=== PATIENT | male | born 1975 ===

== ENCOUNTER 2017-08-23 19:19 | Emergency (ER) | payer SELFPAY ==
[2017-08-23 20:02] VITALS: BP 146/86; PULSE 91; RESP 18; TEMP 98.4; O2SAT 98
--- NOTE | 2017-08-23 21:39 | ED PDOC ---
HPI: CCC, URI, Sore Throat Time Seen by Provider: 08/23/17 21:21 Chief Complaint (Nursing): Cough, Cold, Congestion Chief Complaint (Provider): Cough, Cold, Congestion History Per: Patient History/Exam Limitations: no limitations Onset/Duration Of Symptoms: Days (x 1 month) Current Symptoms Are (Timing): Still Present Additional Complaint(s): 42 year old male presents to the emergency department complaining of cough and congestion, ongoing for 1 month but worsen over the last 3-4 days. Patient previously had a fever, which is now resolved. He reports taking cough syrup with no improvement. Denies any recent travel. Denies chest pain. PMD: None Past Medical History Reviewed: Historical Data, Nursing Documentation, Vital Signs Vital Signs: Last Vital Signs Temp 98.4 F 08/23/17 19:58 Pulse 91 H 08/23/17 19:58 Resp 18 08/23/17 19:58 BP 146/86 08/23/17 19:58 Pulse Ox 98 08/23/17 21:40 - Medical History PMH: No Chronic Diseases - Family History Family History: States: No Known Family Hx - Living Arrangements Living Arrangements: With Family - Social History Current smoker - smoking cessation education provided: No Alcohol: None Drugs: Denies - Home Medications Home Medications: Ambulatory Orders Medication Instructions Recorded Albuterol HFA [Ventolin HFA 90 1 puff IH ASDIR #1 unit 08/23/17 mcg/actuation (8 g)] Azithromycin [Zithromax] 250 mg PO DAILY #6 tab 08/23/17 Benzonatate 200 mg PO TID PRN #20 capsule 08/23/17 - Allergies Allergies/Adverse Reactions: Allergies Allergy/AdvReac Type Severity Reaction Status Date / Time No Known Allergies Allergy Verified 08/23/17 19:58 Review of Systems ROS Statement: Except As Marked, All Systems Reviewed And Found Negative Constitutional: Negative for: Fever ENT: Positive for: Nose Congestion. Negative for: Throat Pain Respiratory: Positive for: Cough. Negative for: Shortness of Breath, SOB with Exertion Gastrointestinal: Negative for: Nausea, Vomiting Physical Exam - Reviewed Nursing Documentation Reviewed: Yes Vital Signs Reviewed: Yes - Physical Exam Appears: Positive for: Well, Non-toxic, No Acute Distress Head Exam: Positive for: ATRAUMATIC, NORMAL INSPECTION, NORMOCEPHALIC Skin: Positive for: Normal Color. Negative for: Rash Eye Exam: Positive for: Normal appearance ENT: Positive for: Normal ENT Inspection, Nasal Congestion (and sinus congestion ) Cardiovascular/Chest: Positive for: Regular Rate, Rhythm Respiratory: Positive for: Decreased Breath Sounds. Negative for: Rhonchi, Wheezing, Respiratory Distress Neurologic/Psych: Positive for: Alert, Oriented - ECG O2 Sat by Pulse Oximetry: 98 (RA) Pulse Ox Interpretation: Normal - Other Rad CXR X-Ray: Interpreted by Me, Viewed By Me X-Ray Interpretation: no acute finding Medical Decision Making Medical Decision Making: Initial Impression: 42 year old male with cough and congestion Time: 21:38 Initial Plan: --chest x-ray --influenza A B --Motrin 600 mg PO --Tylenol 975 mg PO Flu is negative. Patient will be discharged with prescriptions for Tessalon Perles, Zithromax and Ventolin inhaler. Patient was instructed to take Tylenol and Motrin as needed for body aches. He was advised to follow-up with clinic in 2-3 days. Scribe Attestation: Documented by Jody Rivera, acting as a scribe for Rosie Taylor PA-C Provider Scribe Attestation: All medical record entries made by the Scribe were at my direction and personally dictated by me. I have reviewed the chart and agree that the record accurately reflects my personal performance of the history, physical exam, medical decision making, and the department course for this patient. I have also personally directed, reviewed, and agree with the discharge instructions and disposition. Disposition - Clinical Impression Clinical Impression: Upper respiratory infection - Patient ED Disposition Is Patient to be Admitted: No Counseled Patient/Family Regarding: Diagnosis, Need For Followup - Disposition Referrals: [facility] [Provider Group] Disposition: Routine/Home Disposition Time: 23:03 Condition: STABLE Additional Instructions: Take prescription meds as directed. Take [id number] Tylenol and Advil for body aches as needed. Follow up with primary doctor or clinic in one to 2 days. Prescriptions: Albuterol HFA [Ventolin HFA 90 mcg/actuation (8 g)] 1 puff IH ASDIR #1 unit Azithromycin [Zithromax] 250 mg PO DAILY #6 tab Benzonatate 200 mg PO TID PRN #20 capsule PRN Reason: Cough Instructions: Upper Respiratory Infection (ED) Forms: [employer] (E[place]an) Print Language: PASHTO
--- NOTE | 2017-08-24 13:16 | RAD ---
HISTORY: cough COMPARISON: No prior. TECHNIQUE: Chest PA and lateral FINDINGS: LUNGS: No active pulmonary disease. PLEURA: No significant pleural effusion identified. No pneumothorax apparent. CARDIOVASCULAR: Normal. OSSEOUS STRUCTURES: No significant abnormalities. VISUALIZED UPPER ABDOMEN: Normal. OTHER FINDINGS: None. IMPRESSION: No active disease.
== END 2017-08-23 23:20 | disposition home or self-care (01) ==
LOC: H.ER 19:19
DX: J02.9 Acute pharyngitis, unspecified (principal)